=== PATIENT | male | born 1955 | race Two or more races ===

== ENCOUNTER 2019-06-19 19:35 | Emergency (ER) | payer MEDICAID ==
[~2019-06-19] VITALS: Ht 170.2 cm; Wt 128.0 kg
[2019-06-19] MEDS ORDERED: ONDANSETRON 4MG ODT PO STA (20:22)
[2019-06-19] MEDS ORDERED: MECLIZINE 25MG TABLET PO ONE (20:30)
[2019-06-19 20:55] VITALS: BP 143/73
[2019-06-19 21:22] LABS: BASOPHILS % 0.7 % (0.0-2.0); EOSINOPHILS % 0.7 % (0.0-5.0); HEMATOCRIT. 41.7 % (42.0-52.0); HEMOGLOBIN. 14.4 g/dL (14.0-18.0); LYMPHOCYTES % 10.8 % (20.0-50.0); MEAN CORPUSCULAR HEMOGLOBIN 29.7 pg (28.0-32.0); MEAN CORPUSCULAR VOLUME 86.1 fL (80.0-94.0); MEAN PLATELET VOLUME 7.9 fl (7.4-10.4); MONOCYTES % 5.4 % (2.0-8.0); NEUTROPHILS % 82.4 % (40.0-76.0); PLATELET 331 x1000/uL (130-400); RED BLOOD CELL COUNT 4.84 mill/uL (4.7-6.1); RED CELL DISTRIBUTION WIDTH 13.6 % (11.6-14.6)
[2019-06-19 21:30] LABS: CHLORIDE 98 mEq/L (98-107)
== END 2019-06-19 22:48 | disposition home or self-care (01) ==
LOC: ER 19:35
DX: R42 Dizziness and giddiness (principal); R11.0 Nausea; F41.9 Anxiety disorder, unspecified; E11.9 Type 2 diabetes mellitus without complications; I10 Essential (primary) hypertension
CPT/HCPCS: 36415; 80053; 82962; 85025; 93005; 99284; J8597; Q0162